=== PATIENT | female | born 1990 | race Caucasian/White ===

== ENCOUNTER 2017-07-14 07:46 | Emergency (ER) | payer OTHER ==
--- NOTE | 2017-07-14 07:48 | EDPHY ---
HPI/HX/ROS/PE/MDM Narrative: CHIEF COMPLAINT: Seizure HISTORY OF PRESENT ILLNESS: This patient is a 27 year old female arriving via EMS following a possible seizure this morning shortly prior to arrival. She was staying at a friend's house, and her friend was woken by the episode. Per the friend's report the patient was convulsing, having difficulty breathing, and salivating a lot. The patient then turned vazquez briefly. These events took place over about two minutes. The patient's friend states she did not fall out of bed or strike her head on anything during this time. Following this, the patient opened her eyes, but could not focus or speak. Per EMS report, the patient was A&O x 1 on arrival and seemed postictal. On my interview, the patient is awake and alert. She states she felt well before bed last night. She endorses some neck tenderness currently, but no other pain or complaints. She denies sleep deprivation, medication changes, or dietary changes. No recent headache, trauma , or recent illness. No family history of seizures. She did consume half a beer and a small amount marijuana yesterday evening, but this is not unusual for her. The patient denies taking any other substances. No fever, chills, chest pain, shortness of breath, palpitations, vomiting, diarrhea, urinary complaints , headache, lightheadedness. REVIEW OF SYSTEMS: Aside from elements discussed in the HPI, a comprehensive 10-point review of systems was reviewed and is negative. PAST MEDICAL HISTORY: Denies. SOCIAL HISTORY: Student. Nonsmoker. Works at the [employer]. Friend at bedside. No illicit drug use. VITAL SIGNS: Reviewed by me GENERAL: Well-developed, well-nourished, resting comfortably in no respiratory distress. HEENT: Atraumatic. Eyes: No icterus, no injection. No nystagmus. Mouth: moist mucous membranes. No erythema or lesions. No tongue trauma. Neck: supple with no adenopathy. LUNGS: Clear to auscultation bilaterally, no wheezes, rhonchi or rales. CARDIAC: Regular rate and rhythm, no rubs, murmurs or gallops. ABDOMEN: Soft, nontender, nondistended, bowel sounds normal. BACK: No CVA tenderness. EXTREMITIES: No trauma. No edema. Range of motion is normal throughout. NEURO: Alert and oriented, grossly nonfocal. SKIN: Warm and dry, no rash. PSYCHIATRIC: Normal mentation, no agitation. Portions of this note were transcribed by a medical collections. I personally performed a history, physical exam, medical decision making, and confirmed accuracy of information the transcribed note. ED Course: 27 year old female presents following a possible first-time seizure onset shortly prior to arrival, lasting about two minutes. Physical exam is unremarkable. Plan for CT head. Plan for labs including CBC, BMP, BHCG, drug screen. IV established. Plan to administer 1L IV NS. CBC and chemistries within normal limits. BHCG negative. Drug screen pending. 08:[address] Ortega, radiologist. CT head negative for acute processes. 08:39 Toxicology positive for cocaine and marijuana. 08:40 Reassessed patient. Discussed results. Discussed importance of avoiding illicit drugs. Discussed importance of no driving until seen by Neurology. Patient understands importance of avoiding cocaine in the future. She will follow up with neurology upon her return from [facility]. Follow up and return precautions discussed. She is comfortable with this plan. MDM: Differential diagnosis of the patient's seizure was considered including but not limited to electrolyte abnormality, alcohol withdrawal, medication noncompliance, head injury, meningitis, encephalitis, and breakthrough seizure. - Data Points Imaging Results: Imaging Impressions Head CT 07/14/17 08:01 Impression: Normal. I telephoned results to Dr. Landon at 0 8:30 hours. Imaging: Discussed imaging studies w/ score caller Radiologist Laboratory Results: Laboratory Results 07/14/17 Unknown 07/14/17 Unknown 07/14/17 07/14/17 07/14/17 Unknown Unknown Unknown WBC 7.96 10^3/uL 10^3/uL (3.80-9.50) RBC 4.68 10^6/uL 10^6/uL (4.18-5.33) Hgb 15.7 g/dL g/dL (12.6-16.3) Hct 44.6 % % (38.0-47.0) MCV 95.3 fL fL (81.5-99.8) MCH 33.5 pg pg (27.9-34.1) MCHC 35.2 g/dL g/dL (32.4-36.7) RDW 12.2 % % (11.5-15.2) Plt Count 218 10^3/uL 10^3/uL (150-400) MPV 9.6 fL fL (8.7-11.7) Neut % (Auto) 51.3 % % (39.3-74.2) Lymph % (Auto) 32.8 % % (15.0-45.0) [place] % (Auto) 13.9 % H % (4.5-13.0) Eos % (Auto) 0.8 % % (0.6-7.6) Baso % (Auto) 0.8 % % (0.3-1.7) Nucleat RBC Rel Count 0.0 % % (0.0-0.2) Absolute Neuts (auto) 4.09 10^3/uL 10^3/uL (1.70-6.50) Absolute Lymphs (auto) 2.61 10^3/uL 10^3/uL (1.00-3.00) Absolute Monos (auto) 1.11 10^3/uL H 10^3/uL (0.30-0.80) Absolute Eos (auto) 0.06 10^3/uL 10^3/uL (0.03-0.40) Absolute Basos (auto) 0.06 10^3/uL 10^3/uL (0.02-0.10) Absolute Nucleated RBC 0.00 10^3/uL 10^3/uL (0-0.01) Immature Gran % 0.4 % % (0.0-1.1) Immature Gran # 0.03 10^3/uL 10^3/uL (0.00-0.10) Sodium 143 mEq/L mEq/L (134-144) Potassium 4.4 mEq/L mEq/L (3.5-5.2) Chloride 101 mEq/L mEq/L (97-110) Carbon Dioxide 23 mEq/l mEq/l (22-31) Anion Gap 19 mEq/L H mEq/L (8-16) BUN 11 mg/dL mg/dL (7-23) Creatinine 0.8 mg/dL mg/dL (0.6-1.0) Estimated GFR > 60 Glucose 85 mg/dL mg/dL (70-100) Calcium 9.5 mg/dL mg/dL (8.5-10.4) Beta HCG, Qual NEGATIVE Urine Opiates Screen Urine Barbiturates Ur Phencyclidine Scrn Ur Amphetamine Screen U Benzodiazepines Scrn Urine Cocaine Screen U Marijuana (THC) Screen 07/14/17 08:13 WBC RBC Hgb Hct MCV MCH MCHC RDW Plt Count MPV Neut % (Auto) Lymph % (Auto) [place] % (Auto) Eos % (Auto) Baso % (Auto) Nucleat RBC Rel Count Absolute Neuts (auto) Absolute Lymphs (auto) Absolute Monos (auto) Absolute Eos (auto) Absolute Basos (auto) Absolute Nucleated RBC Immature Gran % Immature Gran # Sodium Potassium Chloride Carbon Dioxide Anion Gap BUN Creatinine Estimated GFR Glucose Calcium Beta HCG, Qual Urine Opiates Screen NEGATIVE (NEGATIVE) Urine Barbiturates NEGATIVE (NEGATIVE) Ur Phencyclidine Scrn NEGATIVE (NEGATIVE) Ur Amphetamine Screen NEGATIVE (NEGATIVE) U Benzodiazepines Scrn NEGATIVE (NEGATIVE) Urine Cocaine Screen NON-NEGATIVE H (NEGATIVE) U Marijuana (THC) Screen NON-NEGATIVE H (NEGATIVE) Medications Given: Discontinued Medications Sodium Chloride (Ns) 1,000 mls @ 0 mls/hr IV ONCE ONE; Wide Open PRN Reason: Protocol Stop: 07/14/17 08:02 Last Admin: 07/14/17 08:18 Dose: 1,000 mls General Initial Vital Signs: Initial Vital Signs Temperature (C) 37 C 07/14/17 07:49 Heart Rate 102 H 07/14/17 07:49 Respiratory Rate 18 07/14/17 07:49 Blood Pressure 95/81 H 07/14/17 07:49 O2 Sat (%) 96 07/14/17 07:49 O2 Delivery Mode Room Air Allergies/Adverse Reactions: No Known Allergies Allergy (Unverified 07/14/17 07:53) Home Medications: Medication Instructions Recorded NK [No Known Home Meds] 07/14/17 Departure - Departure Disposition: Home, Routine, Self-Care Clinical Impression: First time seizure, Polysubstance abuse Condition: Good Instructions: Polysubstance Abuse (ED), New-Onset Seizure in Adults (ED) Additional Instructions: 1. Follow up with a neurologist for further evaluation of symptoms. We have referred you to our neurologist motion picture set worker. 2. Stay well hydrated and eat well. Please avoid illicit drug use. 3. Return to the emergency department for repeat seizure in the next 24 hours, seizures lasting longer than 5 minutes, severe headache, fever, difficulty breathing, dizziness, or other worsening of condition. 4. Please do not drive until reevaluated as we discussed. Referrals: Amauri Wilcox DO [Medical Doctor] - As per Instructions Reymundo Hannon DO [Doctor of Osteopathy] - As per Instructions Report Scribed for: Karen Landon Report Scribed by: Charmaine Ramirez Date of Report: 07/14/17 Time of Report: 07:47
[2017-07-14 07:52] VITALS: RESP 18
[2017-07-14] MEDS ORDERED: NS 1,000 ML IV ONE (08:01)
[2017-07-14 08:06] LABS: % IMMATURE GRANULYOCYTES 0.4 % (0.0-1.1); ABSOLUTE IMMATURE GRANULOCYTES 0.03 10^3/uL (0.00-0.10); ADD DIFF? NO; ADD MORPH? NO; ADD SCAN? NO; ATYPICAL LYMPHOCYTE FLAG 30 (0-99); FRAGMENT RBC FLAG 0 (0-99); HEMATOCRIT 44.6 % (38.0-47.0); HEMOGLOBIN 15.7 g/dL (12.6-16.3); LEFT SHIFT FLG 0 (0-99); LIPEMIA HEMOLYSIS FLAG 90 (0-99); MEAN CELL HEMOGLOBIN 33.5 pg (27.9-34.1); MEAN CELL HEMOGLOBIN CONCENTR. 35.2 g/dL (32.4-36.7); MEAN CELL VOLUME 95.3 fL (81.5-99.8); MEAN PLATELET VOLUME 9.6 fL (8.7-11.7); PLATELET CLUMPS FLAG 0 (0-99); PLATELET COUNT 218 10^3/uL (150-400); RED BLOOD CELL COUNT 4.68 10^6/uL (4.18-5.33); RED CELL DISTRIBUTION WIDTH 12.2 % (11.5-15.2)
[2017-07-14 08:20] LABS: ANION GAP 19 mEq/L (8-16); CALCIUM 9.5 mg/dL (8.5-10.4); CARBON DIOXIDE 23 mEq/l (22-31); CHLORIDE 101 mEq/L (97-110); CREATININE 0.8 mg/dL (0.6-1.0); GLOMERULAR FILTRATION RATE > 60; GLUCOSE 85 mg/dL (70-100); POTASSIUM 4.4 mEq/L (3.5-5.2); SODIUM 143 mEq/L (134-144)
[2017-07-14 08:57] VITALS: BP 120/86; PULSE 89; TEMP 98.4; O2SAT 97
== END 2017-07-14 09:08 | disposition home or self-care (01) ==
LOC: EDUNIT#
DX: R56.9 Unspecified convulsions (principal); F19.10 Other psychoactive substance abuse, uncomplicated; E86.9 Volume depletion, unspecified
CPT/HCPCS: 80305